=== PATIENT | female | born 2000 | race Caucasian/White ===

== ENCOUNTER 2024-08-01 16:56 | Inpatient (IN) | payer BC ==
[2024-08-01] MEDS ORDERED: Oxytocin/0.9 % Sodium Chloride 30 UNIT/500 ML BAG IV SCH (17:50)
[2024-08-01] MEDS: Lidocaine 1% 50 ML MDV ONE (17:55)
[2024-08-01] MEDS ORDERED: Benzocaine/Menthol 20%-0.5% Spray 78 GM Cannister TOP PRN (18:46)
[2024-08-01] MEDS ORDERED: oxyCODONE 5 MG Tab PO PRN (18:46)
[2024-08-01] MEDS ORDERED: Ibuprofen 800 MG Tab PO PRN (18:46)
[2024-08-01] MEDS ORDERED: Acetaminophen 500 MG Tab PO PRN (18:46)
[2024-08-01] MEDS ORDERED: Sodium Chloride 0.9% 2.5 ML Syringe FLUSH PRN (19:27)
[2024-08-01] MEDS ORDERED: Water For Irrigation,Sterile 1,000 ML Container IRR PRN (19:27)
[2024-08-01] MEDS ORDERED: Lidocaine 1% 50 ML MDV INJECT PRN (19:27)
[2024-08-01] MEDS ORDERED: Butorphanol 2 MG/ML SDV IVPUSH PRN (19:27)
[2024-08-01] MEDS ORDERED: Misoprostol 200 MCG Tab PO PRN (19:27)
[2024-08-01] MEDS ORDERED: Methylergonovine 0.2 MG/1 ML Amp IM PRN (19:27)
[2024-08-01] MEDS ORDERED: Sodium Chloride 0.9% 20 ML SDV IV PRN (19:27)
[2024-08-01] MEDS ORDERED: Sodium Chloride 0.9% 10 ML Syringe FLUSH PRN (19:27)
[2024-08-01] MEDS ORDERED: Carboprost Tromethamine 250 MCG/1 mL Vial IM PRN (19:27)
[2024-08-01] MEDS ORDERED: Lactated Ringers 1,000 ML IV SCH (19:30)
[2024-08-01] MEDS: Oxytocin/0.9 % Sodium Chloride 30 UNIT/500 ML BAG ONE (20:17)
[2024-08-01] MEDS: Witch Hazel Medicated Pads 40/Jar TOP PRN (20:31)
[2024-08-01] MEDS: Lanolin 100% Cream 7 GM Tube TOP PRN (20:32)
[2024-08-01 20:47] LABS: HEMATOCRIT 34.9 % (37.0-47.0); HEMOGLOBIN 12.4 g/dL (12.0-16.0); MEAN CORPUSCULAR HGB CONC 35.5 g/dL (32.0-36.0); MEAN CORPUSCULAR VOLUME 90.2 fL (83.0-99.0); MEAN PLATELET VOLUME 9.5 fL (9.4-12.3); PLATELET COUNT,PLT 214 K/uL (150-400); RED BLOOD CELL COUNT 3.87 M/uL (4.10-5.30); WHITE BLOOD CELL COUNT,WBC 21.33 K/uL (3.9-11.3)
[2024-08-02 06:50] LABS: HEMATOCRIT 31.2 % (37.0-47.0); HEMOGLOBIN 10.6 g/dL (12.0-16.0)
[2024-08-02] MEDS: Prenatal Multivitamin with Calcium/Folic Acid/Iron Tab PO SCH (08:29)
[2024-08-03] MEDS: Docusate Sodium 100 MG Cap PO PRN (10:13)
== END 2024-08-03 14:04 | disposition home or self-care (01) | DRG 560 ==
LOC: MW.OBCHECK 16:56 → MW.OB 16:56 → MW.OBCHECK 16:59 → MW.OB 17:00 → OBSVTOIN 17:50 → MW.OB 21:38
PROVIDERS: ADMIT Obstetrics & Gynecology Gynecology; ATTEND Obstetrics & Gynecology Gynecology
PROC: 10E0XZZ Delivery of Products of Conception, External Approach (ICD-10-PCS; principal; 2024-08-01)
PROC: 0KQM0ZZ Repair Perineum Muscle, Open Approach (ICD-10-PCS; 2024-08-01)
DX: O48.0 Post-term pregnancy (principal); Z37.0 Single live birth; O70.1 Second degree perineal laceration during delivery; Z3A.41 41 weeks gestation of pregnancy
CPT/HCPCS: 36415; 59025; 59409; 85014; 85018; 85027; 86592; 86850; 86900; 86901; A9270-GY; J2003; J2590